=== PATIENT | male | born 1980 | race African-American/Black ===

== ENCOUNTER 2018-02-01 16:55 | Emergency (ER) | payer BC ==
[~2018-02-01] VITALS: Ht 175.3 cm; Wt 95.3 kg
[2018-02-01 17:08] VITALS: BP 140/94
[2018-02-01] MEDS ORDERED: NORVASC5 MG PO (17:10)
[2018-02-01] MEDS ORDERED: HYDROCODONE-AP1 EAC6 PO (18:32)
== END 2018-02-01 18:44 | disposition home or self-care (01) ==
LOC: ER 16:55
DX: S52.612A Displaced fracture of left ulna styloid process, initial encounter for closed fracture (principal); I10 Essential (primary) hypertension; V89.2XXA Person injured in unspecified motor-vehicle accident, traffic, initial encounter; Y92.89 Other specified places as the place of occurrence of the external cause; Y93.89 Activity, other specified; Y99.8 Other external cause status